=== PATIENT | male | born 1955 | race Two or more races ===

== ENCOUNTER 2016-07-24 21:24 | Emergency (ER) | payer OTHER ==
[~2016-07-24] VITALS: Ht 177.8 cm; Wt 83.9 kg
[2016-07-24 21:39] VITALS: BP 170/97
--- NOTE | 2016-07-24 21:54 | Emergency Room Report ---
History of Present Illness General Chief Complaint: Flu Like Symptoms Source: Patient Present Illness HPI Is a 60-year-old male with a history hypertension but not on medication. He presents with chief complaint of cough and congestion. His been ongoing for last 4 days. Fever for the last 2 days. He's been taking [id number] medication. Coughing is productive of sputum. No fever or chills. No nausea no vomiting. Has tight in his chest. Nothing made it better. Did not get his flu shot this year. Allergies: Coded Allergies: No Known Allergies (Unverified , 07/24/16) Patient History Past Medical History: see triage record, old chart reviewed, HTN Past Surgical History: other Pertinent Family History: none Social History: Denies: smoking Immunizations: other Reviewed Nursing Documentation: PMH: Agreed, PSxH: Agreed Nursing Documentation-PMH Past Medical History: No History, Except For Hx Hypertension: Yes Review of Systems Eye: Denies: blurred vision, eye pain ENT: Denies: ear pain, nose congestion, throat swelling Respiratory: Reports: cough, shortness of breath Cardiovascular: Denies: chest pain, palpitations Gastrointestinal: Denies: abdominal pain, diarrhea, nausea, vomiting Musculoskeletal: Denies: back pain, joint pain Skin: Denies: rash Neurological: Denies: headache, numbness Endocrine: Denies: increased thirst, increased urine Hematologic/Lymphatic: Denies: easy bruising All Other Systems: negative except mentioned in HPI Physical Exam Vital Signs Date Time Temp Pulse Resp B/P Pulse Ox O2 Delivery O2 Flow Rate FiO2 07/24/16 21:31 97.3 68 18 170/97 97 Room Air vitals normal except for high blood pressure Sp02 EP Interpretation: reviewed, normal General Appearance: well appearing, no apparent distress, alert Head: normocephalic, atraumatic Eyes: bilateral eye EOMI, bilateral eye PERRL ENT: hearing grossly normal, normal pharynx Neck: full range of motion, supple, no meningismus Respiratory: chest non-tender, lungs clear, normal breath sounds Cardiovascular #1: regular rate, rhythm, no murmur Gastrointestinal: normal bowel sounds, non tender, no mass, no organomegaly, no bruit, non-distended Musculoskeletal: back normal, gait/station normal, normal range of motion Psychiatric: mood/affect normal Skin: warm/dry Medical Decision Making Diagnostic Impression: Primary Impression: Upper respiratory infection Qualified Codes: J06.9 - Acute upper respiratory infection, unspecified Additional Impression: Hypertension Qualified Codes: I10 - Essential (primary) hypertension ER Course Patient presents with the upper respiratory infection. Most likely virus. No evidence of ACS, PE, dissection to name a few. No evidence of end organ damage to his blood pressure. We'll put her back on blood pressure medication. Lab Results Impression labs normal Rhythm Strip Diag. Results EP Interpretation: yes Rate: 60 Rhythm: NSR, no PVC's, no ectopy Chest X-Ray Diagnostic Results EP Interpretation: Yes Findings: no consolidation, no effusion, no pneumothorax, no acute cardiopulmonary disease Number of Views: 1 Last Vital Signs Date Time Temp Pulse Resp B/P Pulse Ox O2 Delivery O2 Flow Rate FiO2 07/24/16 21:39 97.3 64 18 170/97 97 Room Air Status: improved Disposition: HOME, SELF-CARE Condition: Stable Scripts Azithromycin* (ZITHROMAX*) 250 Mg Tablet 250 MG ORAL DAILY, #6 TAB 0 Refills Take two tablets by mouth today, then take one tablet by mouth daily for four days Prov: TARA RODRIGUEZ M.D. 07/24/16 Amlodipine Besylate (Norvasc) 10 Mg Tablet 10 MG ORAL DAILY, #30 TAB Prov: TARA RODRIGUEZ M.D. 07/24/16 Additional Instructions: Followup with your DrAda in 2-3 days. Return if symptom worsen. TARA RODRIGUEZ M.D. Jul 24, 2016 21:54
[2016-07-24 22:21] LABS: APPEARANCE,URINE CLEAR; BASOPHILS % (AUTO) 0.9 % (0.0-2.0); KETONES,URINE NEGATIVE (NEGATIVE); LEUKOCYTE ESTERASE ,URINE NEGATIVE (NEGATIVE); LYMPHOCYTES % (AUTO) 24.9 % (20.0-45.0); MEAN CORPUSCULAR HEMOGLOBIN 35.5 PG (27.0-31.0); MEAN CORPUSCULAR HGB CONC 38.9 G/DL (32.0-36.0); MEAN CORPUSCULAR VOLUME 91 FL (80-99); MONOCYTES % (AUTO) 8.4 % (1.0-10.0); NEUTROPHILS % (AUTO) 63.9 % (45.0-75.0); NITRITE,URINE NEGATIVE (NEGATIVE); PH,URINE 5 (4.5-8.0); PLATELET COUNT 210 K/UL (150-450); PROTEIN,URINE NEGATIVE (NEGATIVE); RED BLOOD COUNT 4.69 M/UL (4.70-6.10); RED CELL DISTRIBUTION WIDTH 11.2 % (11.6-14.8); UROBILINOGEN,URINE NORMAL MG/DL (0.0-1.0); WHITE BLOOD COUNT 7.9 K/UL (4.8-10.8)
[2016-07-24 22:29] LABS: BACTERIA,URINE FEW /HPF; RBC,URINE 0-2 /HPF (0 - 0); WBC,URINE 0-2 /HPF (0 - 0)
[2016-07-24 22:35] LABS: ANION GAP 15 (5-15); CALCIUM 8.5 mg/dL (8.6-10.2); CARBON DIOXIDE 24 mEQ/L (20-30); CHLORIDE 98 mEQ/L (98-107); CREATININE 0.9 mg/dL (0.7-1.2); GLOMERULAR FILTRATION RATE > 60 mL/min (>60); HEMOLYSIS 6; POTASSIUM 3.7 mEQ/L (3.4-4.9); SODIUM 137 mEQ/L (135-145)
[2016-07-24] MEDS ORDERED: NORVASC10 MG ORAL (22:53)
[2016-07-24] MEDS ORDERED: AZITHROMYCIN250 MG ORAL (22:53)
[2016-07-24 22:57] VITALS: BP 160/89
[2016-07-24 23:02] VITALS: BP 170/97
--- NOTE | 2016-07-28 10:51 | Diagnostic Imaging Report ---
Indication: SOB Technique: One view of the chest Comparison: none Findings: There is a calcified granuloma at the right lung base. Lungs and pleural spaces are otherwise clear. The heart size is upper limits normal. Aorta is ectatic Impression: No acute process Evidence of old granulomatous disease
== END 2016-07-24 23:02 | disposition home or self-care (01) ==
LOC: EMR 22:02
DX: J06.9 Acute upper respiratory infection, unspecified (principal); I10 Essential (primary) hypertension
CPT/HCPCS: 36415; 71010; 80048; 81001; 85025; 99284